=== PATIENT | female | born 1985 ===

== ENCOUNTER 2021-01-04 08:59 | Outpatient (CLI) | payer OTHER | END 2021-01-04 10:15 | disposition home or self-care (01) | LOC: PRENATAL 08:59 | PROVIDERS: ATTEND Obstetrics & Gynecology Maternal & Fetal Medicine | DX: O10.011 Pre-existing essential hypertension complicating pregnancy, first trimester (principal); O09.511 Supervision of elderly primigravida, first trimester; O36.80X1 Pregnancy with inconclusive fetal viability, fetus 1; Z36.89 Encounter for other specified antenatal screening; Z3A.12 12 weeks gestation of pregnancy ==